=== PATIENT | female | born 1980 | race Caucasian/White ===

== ENCOUNTER 2022-07-05 08:10 | Day surgery (SDC) | payer MEDICAID ==
[2022-06-28 12:23] LABS: BASOPHILS % (AUTO) 0.4 % (0-1); EOSINOPHILS # (AUTO) 0.1 X10'3 (0-0.9); LYMPHOCYTES # (AUTO) 1.4 X10'3 (1.1-4.8); LYMPHOCYTES % (AUTO) 23.1 % (21-51); MEAN CORPUSCULAR HEMOGLOBIN 34.8 PG (27.0-31.0); MEAN CORPUSCULAR HGB CONC 32.6 g/dL (33.0-36.5); MEAN PLATELET VOLUME 7.2 FL (7.4-10.4); MONOCYTES # (AUTO) 0.7 X10'3 (0-0.9); MONOCYTES % (AUTO) 11.9 % (2-12); NEUTROPHILS # (AUTO) 3.8 X10'3 (1.8-7.7); NEUTROPHILS % (AUTO) 62.6 % (42-75); PRE OP HEMOGLOBIN 12.1 g/dL (12.0-16.0); PRE OP PLATELET COUNT 121 X10'3 (140-440); RED BLOOD COUNT 3.46 X10'6 (4.20-5.60)
[2022-06-28 12:36] LABS: ALBUMIN 3.2 G/DL (3.4-5.0); ALBUMIN/GLOBULIN RATIO 0.7 (1.1-1.5); ALKALINE PHOSPHATASE 286 IU/L (46-116); BLOOD UREA NITROGEN 6 MG/DL (7-18); BUN/CREATININE RATIO 13.3 (6.6-38.0); CALCIUM 8.2 MG/DL (8.5-10.1); CHLORIDE 102 MMOL/L (99-107); CREATININE 0.45 MG/DL (0.40-0.90); PRE OP ANION GAP 7 (8-16); PRE OP BILIRUB, TOTAL 0.7 MG/DL (0.0-1.0); PRE OP GLUCOSE 116 MG/DL (70-104); PRE OP POTASSIUM 3.4 MMOL/L (3.4-5.1); PRE OP SODIUM 141 MMOL/L (135-145); TOTAL CARBON DIOXIDE 31.9 MMOL/L (24-32); eGFR > 90 ML/MIN
[2022-06-28 12:37] LABS: HCG SERUM QL NEGATIVE
[2022-06-28 12:38] LABS: PRE OP ALT 85 U/L (30-65); PRE OP AST 273 U/L (10-37)
[2022-07-05] VITALS (10 sets, daily range): BP systolic 131–177; BP diastolic 88–103
[~2022-07-05] VITALS: Ht 157.5 cm; Wt 50.4 kg
[~2022-07-05 08:10] MED LIST: BUPR1FIL20 PO; INDOCYANINE GREEN 25 MG/10 ML VIAL IV ONE; ceFAZolin inj. 2,000 MG in dextrose 5%-water 100 ML IV ONE; famotidine 20mg tablet PO ONE; ketorolac trometh. 30mg/ml inj. ONE; ringers solution, lacted 1,000 ML IV SCH; sevoflurane 250ml liquid IH ONE
[2022-07-05] MEDS ORDERED: BUPIVAcaine 0.5% inj/PF 30 ML ONE (10:55)
[2022-07-05] MEDS ORDERED: LIDOcaine 1% 30ml preserv. free vial ONE (10:55)
[2022-07-05] MEDS ORDERED: midazolam 1 mg/ML 2ml injection ONE (11:17)
[2022-07-05] MEDS ORDERED: ketamine 50mg/5ml syringe ONE (11:24)
[2022-07-05] MEDS ORDERED: ondansetron/PF 4mg/2ml inj IV PRN (11:30)
[2022-07-05] MEDS ORDERED: ringers solution, lacted 1,000 ML IV SCH (11:30)
[2022-07-05] MEDS ORDERED: meperidine/PF 25mg/ml syringe IV PRN ×2 (11:30)
[2022-07-05] MEDS ORDERED: BUPIVAcaine 0.5% inj/PF 30 ml vial IJ ONE (11:39)
[2022-07-05] MEDS ORDERED: ondansetron/PF 4mg/2ml inj ONE (12:07)
[2022-07-05] MEDS ORDERED: LIDOcaine 2% (20mg/ml) 5ml vial ONE (12:07)
[2022-07-05] MEDS ORDERED: propofol inj 20 ML IV ONE (12:07)
[2022-07-05] MEDS ORDERED: neostigmine methylsulfate 1 MG/ML 10ml vial ONE (12:07)
[2022-07-05] MEDS ORDERED: glycopyrrolate 0.2mg/ml inj ONE (12:07)
[2022-07-05] MEDS ORDERED: rocuronium 10mg/ml inj IV ONE (12:07)
[2022-07-05] MEDS ORDERED: dexamethasone sod phosphate 4mg/ml inj. ONE (12:07)
[2022-07-05] MEDS ORDERED: sugammadex 200mg/2ml injection IV ONE (12:22)
--- NOTE | 2022-07-05 12:24 | NUR ---
Received from OR via [facility] , accompanied by Anesthesiologist and report given by DARIA Anesthesiologist. PATIENT WAKING UP, DENIES PAIN, V/S WNL, PIV 20G LEFT HAND, DERMABONDED LAPS SITES CLOSED CDI TO ABDOMEN. Addendum: 07/05/22 at 1241 by Cheng Jaffe RN Amended: Links added.
[2022-07-05] MEDS ORDERED: proCHLORperazine 10 MG/2 ml inj IV PRN (12:35)
[2022-07-05] MEDS ORDERED: acetaminophen 325mg tablet PO PRN (12:50)
--- NOTE | 2022-07-05 13:48 | NUR ---
ALL DISCHARGE CRITERIA HAS BEEN MET. VSS, PAIN AT A TOLERABLE LEVEL, ABLE TO SAFELY AMBULATE AND TRANSFER SELF. IV TAKEN OUT WITHOUT ANY COMPLICATIONS. ALL DISCHARGE INSTRUCTIONS COVERED WITH PATIENT AND ALL QUESTIONS ANSWERED. PATIENT TAKEN OUT VIA WHEELCHAIR WITH ALL BELONGINGS TO PERSONAL VEHICLE WHERE FAMILY DROVE PATIENT HOME. Addendum: 07/05/22 at 1425 by Cheng Jaffe RN Amended: Links added.
== END 2022-07-05 13:49 | disposition home or self-care (01) ==
LOC: PAS 08:10
PROVIDERS: ATTEND Surgery
DX: K80.10 Calculus of gallbladder with chronic cholecystitis without obstruction (principal); Z79.899 Other long term (current) drug therapy; Z87.891 Personal history of nicotine dependence; Z87.442 Personal history of urinary calculi; Z72.89 Other problems related to lifestyle
CPT/HCPCS: 36415; 47562; 80053; 82948; 84703; 85025; J0690; J1100; J1885; J2250; J2405; J2704; J2710; J3490; J7030; J7060; J7120; S0020; S2900; Z7506; Z7508; Z7512; A4215; A4618; A7000